=== PATIENT | female | born 1950 | race Caucasian/White ===

== ENCOUNTER 2018-01-23 20:39 | Inpatient (IN) | payer MEDICARE, OTHER ==
[~2018-01-23] VITALS: Ht 157.5 cm; Wt 93.8 kg
[2018-01-23] MEDS ORDERED: methylPREDNISolone SOD SUCC 125 MG/2 ML IVP ONE (21:30)
[2018-01-23] MEDS ORDERED: ALBUTEROL SULFATE 2.5 MG/3 ML NPPB ONE ×2 (21:30→23:30)
[2018-01-23] MEDS: PLEASE ENTER ALLERGIES MC SCH (21:30)
[2018-01-23 21:54] LABS: BASOPHILS # (AUTO) 0.05 x10^3/uL (0-0.1); BASOPHILS % (AUTO) 0 % (0-1); EOSINOPHILS # (AUTO) 0.47 x10^3/uL (0-0.4); EOSINOPHILS % (AUTO) 3 % (1-7); LYMPHOCYTES % (AUTO) 21 % (22-44); MD NO; MEAN CORPUSCULAR HEMOGLOBIN 28.6 pg (27.0-34.8); MEAN CORPUSCULAR HGB CONC 32.7 g/dL (32.4-35.8); MEAN CORPUSCULAR VOLUME 87.6 fL (80-100); MEAN PLATELET VOLUME 8.9 fL (7.4-10.4); MONOCYTES # (AUTO) 0.74 x10^3/uL (0.2-0.8); MONOCYTES % (AUTO) 5 % (2-9); NEUTROPHILS # (AUTO) 10.02 x10^3/uL (1.8-6.8); NEUTROPHILS % (AUTO) 70 % (42-75); PLATELET COUNT 318 x10^3/uL (130-400); RED BLOOD COUNT 4.12 x10^6/uL (3.82-5.3); RED CELL DISTRIBUTION WIDTH 14.2 % (9.6-15.2)
[2018-01-23 22:04] LABS: ALBUMIN 3.8 g/dL (3.4-5.0); ANION GAP 8 mmol/L (5-15); CALCIUM 9.9 mg/dL (8.5-10.1); CHLORIDE 106 mmol/L (98-107); CREATININE 0.89 mg/dL (0.55-1.02)
[2018-01-23 22:08] LABS: TROPONIN I < 0.015 ng/mL (0.000-0.045)
[2018-01-23] MEDS ORDERED: SODIUM CHLORIDE 0.9% 1,000 ML IV ONE (22:56)
[2018-01-23] MEDS ORDERED: OMNIPAQUE 350 MG/ML, 100ML BOTTLE ONE (23:00)
[2018-01-23] MEDS ORDERED: methylPREDNISolone SOD SUCC 125 MG/2 ML ONE (23:22)
[2018-01-23] MEDS ORDERED: TEMAZEPAM 15 MG CAPSULE PO PRN (23:30)
[2018-01-23] MEDS ORDERED: methylPREDNISolone SOD SUCC 40 MG/ML IVPush SCH (23:30)
[2018-01-23] MEDS ORDERED: hydrALAzine 20 MG/ML, 1ML IVPush PRN (23:30)
[2018-01-23] MEDS ORDERED: LEVETIRACETAM 1,000 MG in SODIUM CHLORIDE 0.9% 100 ML IV ONE (23:30)
[2018-01-23] MEDS ORDERED: SODIUM CHLORIDE 0.9% 1,000ML IVBOLUS ONE (23:30)
[2018-01-23] MEDS ORDERED: ONDANSETRON ODT 4 MG PO PRN (23:30)
[2018-01-23] MEDS ORDERED: DOCUSATE 100 MG CAPSULE PO PRN (23:30)
[2018-01-23] MEDS ORDERED: ACETAMINOPHEN 325 MG TABLET PO PRN (23:30)
[2018-01-23] MEDS ORDERED: GUAI12009 PO (23:55)
[2018-01-23] MEDS ORDERED: METF500T17 PO (23:55)
[2018-01-23] MEDS ORDERED: ESOM20CA PO (23:55)
[2018-01-23] MEDS ORDERED: LISI-167 PO (23:55)
[2018-01-23] MEDS ORDERED: ALBU18HF IH (23:55)
[2018-01-23] MEDS ORDERED: LEVE500T8 PO (23:55)
[2018-01-23] MEDS ORDERED: LORA10TA75 PO (23:55)
[2018-01-23] MEDS ORDERED: ASPI-496 PO (23:55)
[2018-01-23] MEDS ORDERED: SIMV10TA3 PO (23:55)
[2018-01-23] MEDS ORDERED: BECL10.62 IH (23:55)
[2018-01-23] MEDS ORDERED: METO25TA35 PO (23:55)
[2018-01-24] MEDS ORDERED: ENOXAPARIN 40 MG/0.4 ML SQ SCH
[2018-01-24] MEDS: SODIUM CHLORIDE 0.9% 1,000 ML IV SCH ×2 (00:38→07:21)
[2018-01-24 01:00] VITALS: BP 135/72
[2018-01-24] MEDS ORDERED: DEXTROSE 50%, 50ML SYRINGE IVPush PRN (01:00)
[2018-01-24] MEDS ORDERED: GLUCAGON 1 MG IM PRN (01:00)
[2018-01-24] MEDS ORDERED: DEXTROSE 4 GM TAB.CHEW PO PRN (01:00)
[2018-01-24] MEDS ORDERED: ALBUTEROL SULFATE 2.5 MG/3 ML NPPB PRN (01:30)
[2018-01-24 02:29] VITALS: BP 135/72
[2018-01-24 03:46] LABS: ANION GAP 7 mmol/L (5-15); CALCIUM 8.9 mg/dL (8.5-10.1); CHLORIDE 110 mmol/L (98-107)
[2018-01-24 03:48] LABS: CREATININE 0.78 mg/dL (0.55-1.02)
[2018-01-24 03:54] LABS: TROPONIN I 0.041 ng/mL (0.000-0.045)
[2018-01-24] MEDS: PLEASE ENTER ALLERGIES MC SCH (05:30)
[2018-01-24] MEDS: ALBUTEROL SULFATE 2.5 MG/3 ML NPPB SCH ×2 (06:50→10:35)
[2018-01-24] MEDS ORDERED: methylPREDNISolone SOD SUCC 40 MG/ML IVPush SCH (07:30)
[2018-01-24 07:57] VITALS: BP 120/68
[2018-01-24] MEDS ORDERED: SODIUM CHLORIDE FLUSH 10ML SYR IVF SCH (09:00)
[2018-01-24] MEDS: INSULIN LISPRO 100 UNITS/ML, PEN SQ-INSULIN SCH ×2 (09:18→11:49)
[2018-01-24] MEDS ORDERED: LEVETIRACETAM 500 MG in SODIUM CHLORIDE 0.9% 100 ML IV SCH (11:30)
[2018-01-24] MEDS ORDERED: LEVETIRACETAM 1,000 MG in SODIUM CHLORIDE 0.9% 100 ML IV SCH (11:30)
[2018-01-24 13:19] VITALS: BP 128/66
== END 2018-01-24 13:21 | disposition home or self-care (01) | DRG 100 ==
LOC: ED 22:27 → EDIP 22:56 → 4WST 01-24 00:09
PROVIDERS: ADMIT Internal Medicine; ATTEND Internal Medicine
DX: G40.909 Epilepsy, unspecified, not intractable, without status epilepticus (principal); J96.21 Acute and chronic respiratory failure with hypoxia; J44.1 Chronic obstructive pulmonary disease with (acute) exacerbation; D72.829 Elevated white blood cell count, unspecified; R32 Unspecified urinary incontinence; E11.9 Type 2 diabetes mellitus without complications; E78.00 Pure hypercholesterolemia, unspecified; I10 Essential (primary) hypertension; Z90.710 Acquired absence of both cervix and uterus
CPT/HCPCS: 36415; 71045; 71275; 80048; 82040; 82962; 84484; 85025; 93005; 94640; 99291; J1953; J7613; Q9967; J1815; J2920; J2930; J7030